=== PATIENT | female | born 1960 | race Caucasian/White ===

== ENCOUNTER → 2017-09-05 | Outpatient (CLI) | payer OTHER | END | disposition home or self-care (01) | LOC: ECHO 08:58 | DX: I51.7 Cardiomegaly (principal) | CPT/HCPCS: 93306 ==

== ENCOUNTER 2017-10-02 10:10 | Outpatient (CLI) | payer OTHER ==
[2017-10-02 10:54] LABS: HEMATOCRIT 43.5 % (36.0-47.0); HEMOGLOBIN 14.8 g/dL (12.0-15.5); MEAN CORPUSCULAR HEMOGLOBIN 28 pg (25-35); MEAN CORPUSCULAR HGB CONC 34 g/dL (31-37); MEAN CORPUSCULAR VOLUME 83 fL (79-100); PLATELET COUNT 308 x10^3/uL (140-400); RED BLOOD COUNT 5.23 x10^6/uL (3.50-5.40); RED CELL DISTRIBUTION WIDTH 13.3 % (11.5-14.5); WHITE BLOOD COUNT 8.1 x10^3/uL (4.0-11.0)
[2017-10-02 10:55] LABS: ANION GAP 9 (6-14); BLOOD UREA NITROGEN 18 mg/dL (7-20); CALCIUM 9.6 mg/dL (8.5-10.1); CARBON DIOXIDE 26 mmol/L (21-32); CHLORIDE 104 mmol/L (98-107); CREATININE 0.9 mg/dL (0.6-1.0); GFR 64.5; GLUCOSE 99 mg/dL (70-99); POTASSIUM 4.1 mmol/L (3.5-5.1); SODIUM 139 mmol/L (136-145)
[2017-10-02] MEDS ORDERED: IOHEXOL 300 MG/ML 100ML VIAL. (11:00)
[2017-10-02] MEDS ORDERED: LIDOCAINE 2% 20 ML VIAL. (11:00)
[2017-10-02 11:19] LABS: PROTHROMBIN TIME PATIENT 12.8 SEC (11.7-14.0)
[2017-10-02] MEDS ORDERED: fentaNYL PF VIAL 100 MCG/2 ML VIAL (11:37)
[2017-10-02] MEDS ORDERED: ONDANSETRON PF 4 MG/2 ML VIAL. (11:38)
[2017-10-02] MEDS ORDERED: MIDAZOLAM HCL/PF 2 MG/2 ML VIAL. (11:38)
[2017-10-02] MEDS ORDERED: NITROGLYCERIN OINT 1 GM PACKET. (12:02)
[2017-10-02] MEDS ORDERED: IV NORMAL SALINE 1000ML BAG 1,000 ML IV (12:42)
[2017-10-02] MEDS: LIDOCAINE 2% 20 ML VIAL. IJ (12:43)
[2017-10-02] MEDS: IOHEXOL 300 MG/ML 100ML VIAL. IART (12:43)
[2017-10-02] MEDS: NITROGLYCERIN OINT 1 GM PACKET. TP (12:43)
[2017-10-02] MEDS: MIDAZOLAM HCL/PF 2 MG/2 ML VIAL. IV (12:44)
[2017-10-02] MEDS: fentaNYL PF VIAL 100 MCG/2 ML VIAL IV (12:44)
[2017-10-02] MEDS: ONDANSETRON PF 4 MG/2 ML VIAL. IV (12:44)
[2017-10-02] MEDS ORDERED: ACETAMINOPHEN 325 MG TABLET. PO (12:45)
[2017-10-02] MEDS ORDERED: NITROGLYCERIN SUBLINGUAL 0.4 MG BOTTLE OF 25. SL (12:45)
[2017-10-02] MEDS ORDERED: 0.9 % SODIUM CHLORIDE 10 ML DISP.SYRIN. IV (12:45)
== END 2017-10-02 15:55 | disposition home or self-care (01) ==
LOC: CCL 10:10
DX: R94.39 Abnormal result of other cardiovascular function study (principal); R06.00 Dyspnea, unspecified; Z88.0 Allergy status to penicillin; Z88.5 Allergy status to narcotic agent; E78.00 Pure hypercholesterolemia, unspecified; I10 Essential (primary) hypertension; Z98.890 Other specified postprocedural states
CPT/HCPCS: 36415; 80048; 85027; 85610; 93458; 99152; 99153; C1769; C1771; C1892; G0269; J1644; J2250; J2405; J3010; Q9967